=== PATIENT | male | born 1965 | race Caucasian/White ===

== ENCOUNTER 2025-06-08 22:45 | Emergency (ER) | payer OTHER, SELFPAY ==
--- NOTE | 2025-06-08 23:12 | HMH.EDGENADL ---
Discharge Plan Disposition Patient Disposition: Home, Self-Care Prescriptions Prescriptions: New levofloxacin 750 mg tablet 750 mg PO DAILY 6 Days Qty: 6 0RF No Action lisinopril 20 mg tablet 20 mg PO HS doxepin 10 mg capsule 10 mg PO HS Referrals Follow up/Referrals: Danial Apodaca MD [Primary Care Provider, Medical] - See instructions Scot James DO [Staff Physician, Orthopedics] - See instructions Sravanthi Mathis APRN [Nurse Practitioner, Ear, Nose, Throat] - See instructions Activity Restrictions/Add. Instructions Additional Instructions/Restrictions: Please follow-up with our ENT doctors for your ear and our orthopedic surgeon for your wrist. Please keep wrist in splint for the next couple weeks at least. Please take antibiotics as prescribed for prophylaxis of your infection. Clinical Impressions Clinical Impression: Fracture of triquetral bone of right wrist Laceration of ear Qualifiers: Encounter type: initial encounter Laterality: right Qualified Code(s): S01.311A - Laceration without foreign body of right ear, initial encounter Instructions Patient Instructions: DI for Laceration Repair Print Language Print Language: Iraqi Discharge ED Provider: Bhavin Kincaid General Adult HPI General Chief complaint: Wound/Laceration Stated complaint: AO 06-08 fell and hit right ear with a cut Time Seen by Provider: 06/08/25 23:12 History of Present Illness HPI narrative: 60-year-old male with history of obesity presents for laceration of the right ear and right wrist pain after a mechanical fall from standing. He denies loss of consciousness. Any headache or any other symptoms besides mild wrist pain and some bleeding from the back of the right ear. Unsure when his last tetanus shot was. Related Data Home Medications ?Medication ?Instructions ?Recorded ?Confirmed doxepin 10 mg capsule 10 mg PO HS 06/09/25 06/09/25 lisinopril 20 mg tablet 20 mg PO HS 06/09/25 06/09/25 Previous Rx's ?Medication ?Instructions ?Recorded levofloxacin 750 mg tablet 750 mg PO DAILY 6 days #6 tabs 06/09/25 Allergies Allergy/AdvReac Type Severity Reaction Status Date / Time NO KNOWN ALLERGIES Allergy Uncoded 11/18/20 18:29 [facility] Disclaimer: The information contained in this section may have been updated after the patient was seen, as this information can be updated by other users. Medical History (Updated 06/09/25 @ 01:02 by Bhavin Kincaid MD) Hypertension Social History Smoking Status: Never smoker alcohol intake: never current occupational status: employed Travel in the last 8 weeks?: None ROS Obtained: Yes All systems reviewed & no additional complaints except as documented Physical Exam General General appearance: alert and in no apparent distress Head Head exam: atraumatic and normocephalic Eye Eye exam: Present normal appearance, PERRL and EOMI ENT ENT exam: Present normal oropharynx and other (Linear laceration to the posterior aspect of the right pinna with some exposed cartilage. The cartilage does not appear to be lacerated. Wound is hemostatic.) Neck Neck exam: Present normal inspection and full ROM Chest Chest inspection: Present normal inspection and symmetric chest wall rise; Absent tenderness Respiratory Respiratory exam: Present normal lung sounds bilaterally; Absent respiratory distress Cardiovascular Cardiovascular exam: Present regular rate and normal rhythm Abdominal Exam Abdominal exam: Present soft; Absent distention, tenderness or guarding Extremities Exam Extremities exam: Present other (Tenderness to the right wrist without obvious deformity); Absent edema or joint swelling Back Exam Back exam: Present normal inspection; Absent tenderness Neurological Exam Neurological exam: Present alert and oriented X3; Absent motor sensory deficit Psychiatric Psychiatric exam: Present normal affect and normal mood Skin Skin exam: Present warm, dry and normal color Lymphatic Lymphatic Findings: no adenopathy Medical Decision Making Medical Records Medical records reviewed: Yes I reviewed the patient's medical records. Screening: Per USPSTF and CDC recommendations, given the prevalence of disease in our region, it is our hospital?s policy to screen for HIV and viral Hepatitis for all patients aged 18 and over and those with ongoing risk factors. Shaan Inquiry Pt receiving controlled substance: No Shaan was queried for this patient: No Vital Signs: 06/08/25 23:42 06/09/25 00:46 06/09/25 00:48 Temperature 98 F 97.6 F Temperature Source Oral Pulse Rate 88 87 Pulse Rate [Radial] 95 H Respiratory Rate 16 16 17 Blood Pressure 155/95 H 155/95 H Blood Pressure [Right Arm] 168/104 H Blood Pressure Mean 115 Blood Pressure Mean [Right Arm] 125 Blood Pressure Position 02 Sat by Pulse Oximetry 96 99 98 Oxygen Delivery Method Room Air Room Air 06/09/25 01:10 Temperature 97.6 F Temperature Source Oral Pulse Rate 88 Pulse Rate [Radial] Respiratory Rate 16 Blood Pressure 155/95 H Blood Pressure [Right Arm] Blood Pressure Mean Blood Pressure Mean [Right Arm] Blood Pressure Position Supine 02 Sat by Pulse Oximetry Oxygen Delivery Method Room Air Lab Data Lab results reviewed: Yes I reviewed the patient's lab results. Orders (Tests/Meds): ED MEDICATIONS Discontinued Medications Generic Name Dose Route Start Last Admin Trade Name Shyam PRN Reason Stop Dose Admin Acetaminophen 1,000 mg 06/09/25 00:30 06/09/25 00:34 Acetaminophen 500mg Tab PO 06/09/25 00:31 1,000 mg ONCE ONE Administration Ibuprofen 600 mg 06/09/25 00:30 06/09/25 00:34 Ibuprofen 600 Mg Tablet PO 06/09/25 00:31 600 mg ONCE ONE Administration Levofloxacin 750 mg 06/08/25 23:32 06/08/25 23:47 Levofloxacin 750 Mg Tablet PO 06/08/25 23:33 750 mg ONCE ONE Administration Lidocaine HCl 10 ml 06/09/25 00:07 06/09/25 00:11 Lidocaine 1% 10ml Mdv SUBCUT 06/09/25 00:08 10 ml ONCE ONE Administration Lidocaine/Epinephrine 4 ml 06/08/25 23:33 06/09/25 00:08 Lidocaine 1% W/Epi 1:100,000 20ml Vial IJ 06/08/25 23:34 Not Given ONCE ONE Tetanus/Reduced Diphtheria/Acell Pertussis 0.5 ml 06/08/25 23:33 06/08/25 23:47 Tet/Diphth/Pert-Adult 0.5ml Syringe IM 06/08/25 23:34 0.5 ml .ONCE ONE Administration ORDERS Category Date Time Status Hand XR right minimum 3 views [XR hand RT min 3V] Stat Exams 06/09/25 00:30 Completed Wrist XR right 2 views [XR wrist RT 2V] Stat Exams 06/09/25 00:30 Completed Medical Decision Narrative: 60-year-old male with history of obesity presents for laceration to the right ear and right wrist pain after mechanical fall from standing. History was obtained via interactive discussion with patient. On arrival, patient is [afebrile, hemodynamically stable, satting appropriately, alert, oriented x4, GCS 15], moving all extremities spontaneously. Full physical exam performed and significant for right ear laceration, right wrist pain. Differential includes but is not limited to intracranial trauma to thoracic trauma intra-abdominal trauma spine trauma extremity trauma. Patient was given Tdap, Levaquin, Tylenol, ibuprofen for symptomatic management and correction of underlying abnormalities. Workup initiated including radiograph of the right wrist. The right ear laceration was blocked, irrigated and repaired by me at bedside using absorbable sutures. Imaging independently interpreted by me and significant for possible triquetral fracture. See radiology read for full review of final results. Labs and CT trauma imaging was considered, but deemed unnecessary due to no clinical concern for severe trauma at this time. Given patient history, exam and workup, patient's presentation most likely represents possible wrist fracture, laceration of the right ear. Interact discussion with outpatient guards presentation. He is put in a removable splint and urged to follow-up with Ortho for his wrist. A bolster and compression wrap was placed around his ear to prevent hematoma formation. He was encouraged follow-up with ENT. He was discharged prescription for Levaquin for prophylaxis of possible infection. Precautions given.. Procedures Risk/Benefits of Procedure(s) Were Explained: Yes Critical Care Critical Care Time Critical Care Time: No
--- OUTSIDE RECORDS SUMMARY | 2025-06-08 23:38 | XMS_ITS | Clinical Summary ---
Author Organization [facility] Address [address] [place] [address] Phone Care Team Providers Care Undertaker Assistant Name Role Phone Unavailable Primary Care Provider Unavailabl e Allergies No known active allergies Medications No known medications Social History Tobacco Use Types Packs/Day Years Used Date Smoking Tobacco: Never Smokeless Tobacco: Current Chew Sex and Gender Information Value Date Recorded Sex Assigned at Not on file Legal Sex Male 5:34 AM EDT Gender Identity Not on file Sexual Orientation Not on file Obstetrics History Last Filed Vital Signs Vital Sign Reading Time Taken Comments Blood Pressure 162/102 11/22/2022 1:34 PM EST Pulse 107 11/22/2022 11:29 AM EST Temperature 37.1 C (98.7 F) 11/22/2022 11:29 AM EST Respiratory Rate 18 11/22/2022 11:29 AM EST Oxygen Saturation 98% 11/22/2022 11:29 AM EST Inhaled Oxygen Concentration - - Weight 145.2 kg (320 lb) 11/22/2022 11:29 AM EST Height 180.3 cm (5' 11 ) 11/22/2022 11:29 AM EST Body Mass Index 44.63 11/22/2022 11:29 AM EST Plan of Treatment Health Maintenance Due Date Last Done Comments Annual Wellness Exam 1969 DTaP/TDaP/Td (1 - Tdap) 1985 Hepatitis B Vaccine (1 of 3 - 19+ 3-dose series) 1985 Cologuard 2011 Colon Cancer Screening 2011 Colonoscopy 2011 FIT 2011 Sigmoidoscopy 2011 Virtual Colonography 2011 Pneumococcal Vaccine 50+ (1 of 1 - PCV) 2016 Zoster (1 of 2) 2016 COVID-19 Vaccine (2023-2 5 season) 2024 08/04/2021, 07/14/2021 Influenza Vaccine (#1) 2025 09/12/2017 Meningococcal B Vaccine Aged Out No l onger eligible based on patient's age to complete this topic Insurance [employer]
--- OUTSIDE RECORDS SUMMARY | 2025-06-08 23:38 | XMS_ITS | Clinical Summary ---
Author Organization [facility] Address [address] [place] [address] Care Team Providers Care Environmental Health And Safety Intern Name Role Phone Matthew Apodaca MD Primary Care Provider [phone] Allergies No known active allergies Social History Tobacco Use Types Packs/Day Years Used Date Smoking Tobacco: Never Assessed Sex and Gender Information Value Date Recorded Sex Assigned at Not on file Legal Sex Male 9:13 PM EDT Gender Identity Not on file Sexual Orientation Not on file Last Filed Vital Signs Vital Sign Reading Time Taken Comments Blood Pressure 210/118 02/12/2025 10:26 PM EDT Pulse 80 02/12/2025 10:26 PM EDT Temperature 36.8 C (98.2 F) 02/12/2025 9:15 PM EDT Respiratory Rate 18 02/12/2025 10:26 PM EDT Oxygen Saturation 96% 02/12/2025 10:26 PM EDT Inhaled Oxygen Concentration - - Weight 154 kg (340 lb) 02/12/2025 9:15 PM EDT Height 180.3 cm (5' 11 ) 02/12/2025 9:15 PM EDT Body Mass Index 47.42 02/12/2025 9:15 PM EDT Plan of Treatment Health Maintenance Due Date Last Done Comments ANNUAL PHYSICAL 1966 HEPATITIS C SCREENING 1966 TDAP/TD VACCINES (1 - Tdap) 1985 COLOGUARD 2011 COLON CANCER SCREENING 5 YEA R SIGMOIDOSCOPY 2011 COLONOSCOPY 2011 COLORECTAL CANCER SCREENING 2011 CT COLONOGRAPHY 2011 FECAL OCCULT BLOOD TEST 2011 FIT Testing (1 year) 2011 Pneumococcal Vaccine 50+ (1 of 1 - PCV) 2016 ZOSTER VACCINE (1 of 2) 2016 COVID-19 Vaccine (3 - 2024-25 season) 2024, 07/14/2021 INFLUENZA VACCINE 08/13/2025 09/12/2017 [place] [facility] [place] Care Teams Environmental Health And Safety Intern Relationship Specialty Start Date End Date Matthew Apodaca MD [address] [place] [id number] PCP - General Family Medicine 02/12/25
[2025-06-08 23:42] VITALS: BP 168/104; PULSE 95; RESP 16; TEMP 36.6; O2SAT 96; BMI 43.9
[2025-06-08] MEDS: TET/DIPHTH/PERT-ADULT 0.5ML SYRINGE 0.5 ML IM (23:47)
[2025-06-09] MEDS: LIDOCAINE 1% 10ML MDV 10 ML SUBCUT (00:11)
--- NOTE | 2025-06-09 00:30 | XR_ITS ---
PROCEDURE INFORMATION: Exam: XR Right Hand Exam date and time: 06/09/2025 12:38 AM Age: 60 years old Clinical indication: Injury or trauma; Fall; Blunt trauma (contusions or hematomas); Hand; Right; Additional info: Fall, hand pain TECHNIQUE: Imaging protocol: Radiologic exam of the right hand. Views: 3 or more views. COMPARISON: CR XR WRIST RT 2V 06/09/2025 12:38 AM FINDINGS: Bones/joints: Small ossific density seen on the lateral projection radiograph. Possible triquetral fracture . Soft tissues: Normal. IMPRESSION: Small ossific density seen on the lateral projection radiograph. Possible triquetral fracture .
--- NOTE | 2025-06-09 00:30 | XR_ITS ---
PROCEDURE INFORMATION: Exam: XR Right Wrist Exam date and time: 06/09/2025 12:38 AM Age: 60 years old Clinical indication: Pain; Hand and wrist; Right; Additional info: Fall, wrist pain TECHNIQUE: Imaging protocol: Radiologic exam of the right wrist. Views: 1 or 2 views. COMPARISON: CR XR HAND RT MIN 3V 06/09/2025 12:38 AM FINDINGS: Bones/joints: Small ossific density seen on the lateral projection radiograph. Possible triquetral fracture . Soft tissues: Normal. IMPRESSION: Small ossific density seen on the lateral projection radiograph. Possible triquetral fracture .
[2025-06-09] MEDS: ACETAMINOPHEN 500MG TAB 1000 MG PO (00:34)
[2025-06-09] MEDS: IBUPROFEN 600 MG TABLET PO (00:34)
[2025-06-09 00:46] VITALS: BP 155/95; PULSE 88; RESP 16; TEMP 36.4; O2SAT 99
[2025-06-09 00:48] VITALS: BP 155/95; PULSE 87; RESP 17; O2SAT 98
[2025-06-09 01:10] VITALS: BP 155/95; PULSE 88; RESP 16; TEMP 36.4; O2SAT 99
--- NOTE | 2025-06-09 01:11 | PC.NURSE ---
wrist plint placed on right wrist and pt told to follow up with ortho
== END 2025-06-09 01:12 | disposition home or self-care (01) ==
PROVIDERS: Emergency Provider Emergency Medicine; PCP Family Medicine
DX: S62.111A Displaced fracture of triquetrum [cuneiform] bone, right wrist, initial encounter for closed fracture (principal); S01.311A Laceration without foreign body of right ear, initial encounter; W19.XXXA Unspecified fall, initial encounter
CPT/HCPCS: 12011; 73100; 73130; 90471; 90715; 99283; J2004

== ENCOUNTER 2025-06-11 11:52 | Outpatient (CLI) | payer OTHER, SELFPAY ==
--- OUTSIDE RECORDS SUMMARY | 2025-06-11 11:55 | XMS_ITS | Clinical Summary ---
Author Organization [facility] Address [address] [place] [address] Phone Care Team Providers Care Facilities Flight Check Pilot Name Role Phone Unavailable Primary Care Provider [...]
--- OUTSIDE RECORDS SUMMARY | 2025-06-11 11:55 | XMS_ITS | Clinical Summary ---
Author Organization [facility] Address [address] [place] [address] Care Team Providers Care Research Professional Name Role Phone Matthew Apodaca MD Primary Care Provider [phone] Allergies No known active allergies Social History [...] 2024, 07/14/2021 INFLUENZA VACCINE 08/13/2025 09/12/2017 Insurance [facility] Care Teams Research Professional Relationship Specialty Start Date End Date Matthew Apodaca MD [address] [place] [id number] PCP - General Family Medicine 02/12/25
--- NOTE | 2025-06-11 11:59 | XR_ITS ---
FINAL REPORT CLINICAL HISTORY: ACUTE KNEE PAIN FINDINGS: AP, lateral and oblique views of the right knee were obtained. There is no prior exam for comparison. There is no acute osseous abnormality of the right knee. There is degenerative joint disease. The soft tissues are normal. There is no joint effusion. IMPRESSION: No acute osseous abnormality of the right knee. Reviewed, Interpreted and Dictated by Tori Bradford MD Transcribed by Connie Singh Authenticated and [facility]
== END 2025-06-11 23:59 | disposition home or self-care (01) ==
LOC: RAD 11:53
PROVIDERS: PCP Family Medicine; Visit Provider Family Medicine
DX: M25.569 Pain in unspecified knee (principal)
CPT/HCPCS: 73562

== ENCOUNTER 2025-07-10 10:10 | Outpatient (CLI) | payer OTHER, SELFPAY ==
--- NOTE | 2025-07-10 10:11 | XR_ITS ---
FINAL REPORT CLINICAL HISTORY: right hand pain FINDINGS: AP, lateral and oblique views of the right hand were obtained. There is no prior exam for comparison. There is no acute fracture or dislocation. Mild multijoint degenerative disease. Calcification dorsal to the carpal bones is concerning for old triquetral fracture. The soft tissues are normal. IMPRESSION: Degenerative change without acute osseous abnormality of the right hand. Possible old triquetral fracture. Reviewed, Interpreted and Dictated by Tori Bradford MD Transcribed by Enma Rich Authenticated and [facility]
--- OUTSIDE RECORDS SUMMARY | 2025-07-10 10:13 | XMS_ITS | Clinical Summary ---
Author Organization [facility] Address [address] [place] [address] Care Team Providers Care Linux Admin Engineer Name Role Phone Matthew Apodaca MD Primary Care Provider [phone] Allergies No known active allergies Social History [...] 2024, 07/14/2021 INFLUENZA VACCINE 08/13/2025 09/12/2017 Insurance [facility] Care Teams Linux Admin Engineer Relationship Specialty Start Date End Date Matthew Apodaca MD [address] [place] [id number] PCP - General Family Medicine 02/12/25
--- OUTSIDE RECORDS SUMMARY | 2025-07-10 10:13 | XMS_ITS | Clinical Summary ---
Author Organization [facility] Address [address] [place] [address] Phone Care Team Providers Care Manager Advanced Name Role Phone Unavailable Primary Care Provider [...]
== END 2025-07-10 23:59 | disposition home or self-care (01) ==
LOC: RAD 10:11
PROVIDERS: Visit Provider Physician Assistant Surgical
DX: M19.041 Primary osteoarthritis, right hand (principal); R93.6 Abnormal findings on diagnostic imaging of limbs
CPT/HCPCS: 73130

== ENCOUNTER 2025-08-07 10:09 | Outpatient (CLI) | payer OTHER, SELFPAY ==
--- NOTE | 2025-08-07 10:09 | XR_ITS ---
FINAL REPORT CLINICAL HISTORY: right wrist fx COMPARISON: None FINDINGS: RIGHT WRIST Three views demonstrate a calcific or ossific density overlying the carpal bones on the lateral view. This density measures 4 mm and may be related to a triquetral fracture, which is age-indeterminate. There is soft tissue swelling over the dorsum of the wrist. The remaining structures appear intact. IMPRESSION: Calcific or ossific density overlying the carpal bones may be related to a triquetral fracture, age-indeterminate. Soft tissue swelling over the dorsum of the wrist. Reviewed, Interpreted and Dictated by Wilver Casanova MD Transcribed by Bhakti Mcknight Authenticated and [facility]
--- OUTSIDE RECORDS SUMMARY | 2025-08-07 10:11 | XMS_ITS | Clinical Summary ---
Author Organization [facility] Address [address] [place] [address] Care Team Providers Care Universal Banker Name Role Phone Matthew Apodaca MD Primary Care Provider [phone] Allergies No known active allergies Social History [...] 1985 COLOGUARD 2011 COLON CANCER SCREENING 5 YEAR SIGMOIDOSCOPY 2011 COLONOSCOPY 2011 COLORECTAL CANCER SCREENING 2011 CT COLONOGRAPHY 2011 FECAL OCCULT BLOOD TEST 2011 FIT Testing (1 year) 2011 Pneumococcal Vaccine 50+ (1 of 1 - PCV) 2016 ZOSTER VACCINE (1 of 2) 2016 INFLUENZA VACCINE 06/13/2025 09/12/2017 Insurance [facility] Care Teams Universal Banker Relationship Specialty Start Date End Date Matthew Apodaca MD [address] [place] [id number] PCP - General Family Medicine 02/12/25
--- OUTSIDE RECORDS SUMMARY | 2025-08-07 10:11 | XMS_ITS | Clinical Summary ---
Author Organization [facility] Address [address] [place] [address] Phone Care Team Providers Care School Bus Driver/Mechanic Name Role Phone Unavailable Primary Care Provider [...] Zoster (1 of 2) 2016 COVID-19 Vaccine (2024-2 6 season) 2025 08/04/2021, 07/14/2021 Influenza Vaccine (#1) 2025 09/12/2017 Meningococcal B Vaccine Aged Out No l onger eligible based on patient's age to complete this topic Insurance [employer]
== END 2025-08-07 23:59 | disposition home or self-care (01) ==
LOC: RAD 10:09
PROVIDERS: PCP Family Medicine; Visit Provider Physician Assistant Surgical
DX: S62.111D Displaced fracture of triquetrum [cuneiform] bone, right wrist, subsequent encounter for fracture with routine healing (principal); X58.XXXD Exposure to other specified factors, subsequent encounter
CPT/HCPCS: 73110